=== PATIENT | female | born 1970 | race Caucasian/White ===

== ENCOUNTER 2016-06-09 10:23 | Emergency (ER) | payer BC ==
[2016-06-09 10:39] VITALS: BP 114/74
--- NOTE | 2016-06-09 10:56 | UC ---
Respiratory Complaint HPI - HPI Summary HPI Summary: dry cough for a week. STarted with fever, body aches, headache, ST. Now just a dry cough but also having pain in back. "Feels like pressure, like a tight heavy weight on back." Hurts to touch muscles on back, hurts to cough, hurts to take deep breath, hurts to lie flat. She is worried about pneumonia and wants a CXR to rule it out. Not worse with exertion. No sinus drainage. - History of Current Complaint Chief Complaint: UCRespiratory Stated Complaint: BACK AND CHEST TIGHTNESS Time Seen by Provider: 06/09/16 10:38 Hx Obtained From: Patient Onset/Duration: Gradual Onset Timing: Constant Severity Initially: Mild Severity Currently: Moderate Character: Cough: Nonproductive Aggravating Factors: Exertion, Recumbent Position Alleviating Factors: Nothing Associated Signs And Symptoms: Positive: Dyspnea, Fever - first few days only, Chills, Pleuritic Chest Pain, URI. Negative: Wheezing, Hemoptysis, Dizziness, Edema, Nasal Congestion, Hoarseness, Sinus Discomfort - Risk Factors Pulmonary Embolism Risk Factors: Negative Cardiac Risk Factors: Negative Pseudomonas Risk Factors: Negative Tuberculosis Risk Factors: Negative - Allergies/Home Medications Allergies/Adverse Reactions: Allergies Allergy/AdvReac Type Severity Reaction Status Date / Time Tetanus Toxoid Allergy Severe Anaphylatic Verified 06/09/16 10:34 Shock Sulfa Drugs Allergy Hives Verified 06/09/16 10:34 Home Medications: Home Medications Levothyroxine TAB* [Synthroid TAB*] 112 mcg PO 0800 06/09/16 [History Confirmed 06/09/16] buPROPion SR TAB* [Wellbutrin SR TAB*] 150 mg PO BID 06/09/16 [History Confirmed 06/09/16] PMH/Surg Hx/FS Hx/Imm Hx Endocrine History Of: Reports: Thyroid Disease - hypothyroid Denies: Diabetes Cardiovascular History Of: Reports: Cardiac Disorders - Pericardial effusion 2001 Denies: Hypertension, Congestive Heart Failure GI/ History Of: Denies: Renal Disease - Surgical History Surgical History: Yes Surgery Procedure, Year, and Place: tubal ligation 2003; uterine ablation 2013; - Family History Known Family History: Negative: Respiratory Disease - no FH asthma - Social History Occupation: Employed Full-time Lives: With Family Alcohol Use: Rare Substance Use Type: None Smoking Status (MU): Never Smoked Tobacco Review of Systems Constitutional: Fatigue Skin: Negative Eyes: Negative ENT: Negative Respiratory: Shortness Of Breath, Cough Cardiovascular: Negative Gastrointestinal: Negative Genitourinary: Negative Motor: Negative Neurovascular: Negative Musculoskeletal: Myalgia - upper back Neurological: Negative Psychological: Negative All Other Systems Reviewed And Are Negative: Yes Physical Exam Triage Information Reviewed: Yes Appearance: Well-Appearing, No Pain Distress, Well-Nourished Vital Signs: Initial Vital Signs Temp 98.9 F 06/09/16 10:30 Pulse 76 06/09/16 10:30 Resp 16 06/09/16 10:30 BP 114/74 06/09/16 10:30 Pulse Ox 99 06/09/16 10:30 Vital Signs Reviewed: Yes Eye Exam: Normal ENT Exam: Normal ENT: Positive: Hearing grossly normal, Pharynx normal, TMs normal. Negative: Tonsillar swelling, Tonsillar exudate, Trismus, Muffled/hoarse voice Respiratory Exam: Normal Respiratory: Positive: Lungs clear, Normal breath sounds, No respiratory distress, No accessory muscle use Cardiovascular Exam: Normal Cardiovascular: Positive: RRR Musculoskeletal Exam: Other - tenderness to palpation of muscles of upper back Neurological Exam: Normal Psychological Exam: Normal Skin Exam: Normal UC Diagnostic Evaluation - Laboratory O2 Sat by Pulse Oximetry: 99 Diagnostic Studies Comment: CXR neg Respiratory Course/Dx - Differential Dx/Diagnosis Differential Diagnosis/HQI/PQRI: Bronchitis, Lower Resp Infection Provider Diagnoses: URI Discharge - Discharge Plan Condition: Stable Disposition: HOME Prescriptions: Albuterol HFA INHALER* [Ventolin HFA Inhaler*] 1 - 2 puff INH Q4H PRN #1 mdi PRN Reason: cough, chest tightness Hydrocodone Polistirex-Chlorph [Tussionex Pennkinetic Ext 10-8 mg/5Ml] 1 teasp PO BID PRN #60 ml MDD 10ml PRN Reason: Cough Patient Education Materials: Upper Respiratory Infection (ED) Forms: *Work Release Referrals: Roberto Castro MD [Primary Care Provider] -
--- NOTE | 2016-06-09 11:18 | RAD ---
INDICATION: Cough, heavy feeling. COMPARISON: There are no prior studies available for comparison. TECHNIQUE: Dual-energy PA and lateral views of the chest were obtained. FINDINGS: The heart is within normal limits in size. Mediastinal and hilar contours appear within normal limits. The lungs are clear. No pleural effusion is present. IMPRESSION: NO EVIDENCE FOR ACTIVE CARDIOPULMONARY DISEASE.
== END 2016-06-09 11:35 | disposition home or self-care (01) ==
LOC: UCCORT 10:23
DX: J06.9 Acute upper respiratory infection, unspecified (principal); E03.9 Hypothyroidism, unspecified; Z88.7 Allergy status to serum and vaccine; Z88.2 Allergy status to sulfonamides
CPT/HCPCS: 71020; 99212; G0463

== ENCOUNTER 2016-07-29 08:25 | Emergency (ER) | payer BC ==
[2016-07-29 08:48] VITALS: BP 101/65
--- NOTE | 2016-07-29 10:32 | RAD ---
Indication: Right-sided reveals and cough. 2 views of the chest including dual energy PA views demonstrates no mediastinal shift. Heart is of normal size and configuration. Lung elias demonstrate no pleural fluid, bony or pneumothorax. When compared to previous exam of July 09, 2016 no significant change is noted. IMPRESSION: No active cardiopulmonary disease is noted.
--- NOTE | 2016-07-29 11:04 | UC ---
Throat Pain/Nasal Nacho HPI - HPI Summary HPI Summary: 45 yo female with cough x a week now with sever sore throat has had pneumonia and bronchits since May no f/c no n/v/d no CP or SOB no myalgias - History of Current Complaint Chief Complaint: UCRespiratory Stated Complaint: UPPER RESPIRATORY Time Seen by Provider: 07/29/16 09:29 Onset/Duration: Gradual Onset, Lasting Days Severity: Moderate Pain Intensity: 4 Pain Scale Used: 0-10 Numeric Cough: Nonproductive - Epiglottits Risk Factors Epiglottis Risk Factors: Negative - Allergies/Home Medications Allergies/Adverse Reactions: Allergies Allergy/AdvReac Type Severity Reaction Status Date / Time Tetanus Toxoid Allergy Severe Anaphylatic Verified 07/29/16 08:40 Shock Sulfa Drugs Allergy Hives Verified 07/29/16 08:40 PMH/Surg Hx/FS Hx/Imm Hx Previously Healthy: Yes Endocrine History Of: Reports: Thyroid Disease - hypothyroid Denies: Diabetes Cardiovascular History Of: Reports: Cardiac Disorders - Pericardial effusion 2001 Denies: Hypertension, Congestive Heart Failure Respiratory History Of: Reports: Bronchitis, Pneumonia GI/ History Of: Denies: Renal Disease - Surgical History Surgical History: Yes Surgery Procedure, Year, and Place: tubal ligation 2003; uterine ablation 2013; - Family History Known Family History: Negative: Respiratory Disease - no FH asthma - Social History Alcohol Use: Occasionally Substance Use Type: None Smoking Status (MU): Former Smoker When Did the Patient Quit Smoking/Using Tobacco: 1 1/2 years ago - Immunization History Most Recent Influenza Vaccination: 2015 Review of Systems Constitutional: Fatigue Skin: Negative Eyes: Negative ENT: Sore Throat Respiratory: Cough Cardiovascular: Negative Gastrointestinal: Negative Genitourinary: Negative Motor: Negative Neurovascular: Negative Musculoskeletal: Negative Neurological: Negative Psychological: Negative All Other Systems Reviewed And Are Negative: Yes Physical Exam Triage Information Reviewed: Yes Appearance: Well-Appearing, No Pain Distress, Well-Nourished Vital Signs: Initial Vital Signs Temp 98.4 F 07/29/16 08:42 Pulse 74 07/29/16 08:42 Resp 16 07/29/16 08:42 BP 101/65 07/29/16 08:42 Pulse Ox 99 07/29/16 08:42 Vital Signs Reviewed: Yes Eyes: Positive: Conjunctiva Clear ENT: Positive: Hearing grossly normal, Pharyngeal erythema, TMs normal, Tonsillar swelling. Negative: Nasal congestion, Nasal drainage, Tonsillar exudate, Trismus, Muffled/hoarse voice, Other: - no sinus tenderness Dental: Negative: Gross Decay/Caries @, Dental Fracture @, Abscess @ Neck: Positive: Supple, Nontender, Enlarged Nodes @ - ant cervical Respiratory: Positive: No respiratory distress, No accessory muscle use, Crackles - right UL. Negative: Rhonchi, Stridor, Wheezing Cardiovascular: Positive: RRR, No Murmur Musculoskeletal: Positive: ROM Intact, No Edema Neurological: Positive: Alert Psychological: Positive: Normal Response To Family Skin Exam: Normal Throat Pain/Nasal Course/Dx - Differential Dx/Diagnosis Provider Diagnoses: Pharyngitis. acute bronchitis Discharge - Discharge Plan Condition: Stable Disposition: HOME Prescriptions: Amoxicillin (*) [Amoxicillin 875 MG (*)] 875 mg PO BID #20 tab Prednisone 60 mg PO DAILY #9 tab Patient Education Materials: Pharyngitis (ED), Acute Bronchitis (ED) Forms: *Work Release Referrals: Roberto Castro MD [Primary Care Provider] - 1 Week Additional Instructions: recheck for new or worsening symptoms
== END 2016-07-29 11:07 | disposition home or self-care (01) ==
LOC: UCCORT 08:25
DX: J20.9 Acute bronchitis, unspecified (principal); J02.9 Acute pharyngitis, unspecified; Z88.2 Allergy status to sulfonamides; Z88.8 Allergy status to other drugs, medicaments and biological substances; Z87.891 Personal history of nicotine dependence
CPT/HCPCS: 71020; 87651; 99212; G0463

== ENCOUNTER 2017-12-20 07:58 | Observation (INO) | payer BC ==
[~2017-12-20 07:58] MED LIST: Buffered Lidocaine 0.9% SYRIN* 5 ML/SYR SYRINGE INTRADERM ONE; Sodium Citrate/Citric Acid* 15 ML UDC PO ONE
[2017-12-20] MEDS ORDERED: ceFAZolin 2 GM PREMIX (*) 2 GM/50 ML BAG IVPB ONE (08:11)
[2017-12-20] MEDS ORDERED: Sodium Citrate/Citric Acid* 15 ML UDC ONE (08:11)
[2017-12-20] MEDS ORDERED: Thrombin 5,000 UNITS* 1 APPLIC KIT - topical use - TOPICAL ONE (10:26)
[2017-12-20] MEDS ORDERED: Lidocain 1% EPI 1:100,000 * 30 ML MDV ONE (10:26)
[2017-12-20] MEDS ORDERED: Bacitracin IV* 50,000 UNITS INJ ONE (10:26)
[2017-12-20] MEDS ORDERED: Propofol* 10 MG/ML 20 ML BTL IV PUSH ONE ×2 (10:29→13:06)
[2017-12-20] MEDS ORDERED: Midazolam* 1 MG/ML 2 ML VIAL (2 MG) ONE (10:29)
[2017-12-20] MEDS ORDERED: fentaNYL* 50 MCG/ML 2 ML VIAL (100 MCG VIAL) ONE ×3 (10:29→13:47)
[2017-12-20] MEDS ORDERED: Lidocaine 2% PF * 5 ML VIAL ONE (10:30)
[2017-12-20] MEDS ORDERED: Rocuronium* 10 MG/ML VIAL ONE (10:46)
[2017-12-20] MEDS ORDERED: Ketorolac INJ* 30 MG/ML 1 ML VIAL IV PRN (12:06)
[2017-12-20] MEDS ORDERED: Naloxone* 0.4 MG/ML 1 ML VIAL IV PRN (12:06)
[2017-12-20] MEDS ORDERED: DiMENhydriNATE IV* 50 MG/ML VIAL IV PUSH PRN (12:06)
[2017-12-20] MEDS ORDERED: Neostigmine Methylsulfate* 1 MG/ML 10 ML VIAL (1 mg/ml) ONE (12:21)
[2017-12-20] MEDS ORDERED: Glycopyrrolate IV* 0.2 MG/ML 1 ML VIAL ONE (12:21)
[2017-12-20] MEDS ORDERED: Acetaminophen TAB* 325 MG PO PRN (12:56)
[2017-12-20] MEDS ORDERED: Magnesium Hydroxide LIQ* 30 ML UDC PO PRN (12:56)
[2017-12-20] MEDS: fentaNYL* 50 MCG/ML 2 ML VIAL (100 MCG VIAL) IV PRN ×4 (13:30→14:14)
[2017-12-20] MEDS ORDERED: HYDROcodone/ACETAMIN 5-325 MG* 1 TAB ONE (14:07)
[2017-12-20] MEDS ORDERED: Ketorolac INJ* 30 MG/ML 1 ML VIAL ONE (14:07)
[2017-12-20] MEDS: HYDROcodone/ACETAMIN 5-325 MG* 1 TAB PO PRN ×2 (14:08→18:11)
--- NOTE | 2017-12-20 16:41 | RAD ---
INDICATION: Intraoperative lateral lumbar radiograph TECHNIQUE: A single crosstable lateral view was acquired intraoperatively. FINDINGS: At the L5/S1 level there are retractors overlying the posterior soft tissues of the back with a surgical instrument pointing at the L5/S1 intervertebral disc space. IMPRESSION: Crosstable lateral lumbar radiograph as described above.
[2017-12-20] MEDS ORDERED: Mouth Piece, Nicotine* 1 EACH CARTRIDGE INH ONE (18:19)
[2017-12-20] MEDS ORDERED: Nicotine Inhaler* 10 MG AMP INH PRN (18:19)
[2017-12-20] MEDS ORDERED: ALPRAZolam TAB* 0.5 MG PO SCH (21:00)
[2017-12-20] MEDS ORDERED: Citalopram TAB* 40 MG PO SCH (21:00)
[2017-12-21] MEDS: HYDROcodone/ACETAMIN 5-325 MG* 1 TAB PO PRN ×2 (02:16→07:36)
[2017-12-21] MEDS ORDERED: Levothyroxine TAB* 112 MCG TAB PO SCH (06:00)
[2017-12-21 07:56] VITALS: BP 99/50
--- NOTE | 2017-12-21 07:56 | PN ---
Progress Note - Progress Note Date of Service: 12/21/17 SOAP: Subjective: [S/p lumbar discectomy L5-S1 right complicated by CSF leak, POD #1. Preop RLE symptoms improved. Able to ambulate up to bathroom. Pain well controlled with PO meds. Eating, drinking and voiding without difficulty.] Objective: [ Vital Signs: Temp Pulse Resp BP Pulse Ox 98.5 F 69 16 94/55 93 12/21/17 03:29 12/21/17 03:29 12/21/17 07:36 12/21/17 03:29 12/21/17 03:29 General: Alert, laying comfortably in bed. NAD. Neuro: Motor and sensory normal. Incision: Intact with amado. Dressing in place, no swelling. ] Assessment: [Satisfactory post-op.] Plan: [1. Discharge home today. 2. Discharge instructions discussed.]
--- NOTE | 2017-12-28 18:09 | OP ---
DATE OF OPERATION: 12/20/17 - ROOM #339 DATE OF : 66 SURGEON: Fidel Das MD SCREEDMAN/LABORER: PARAMJIT Cruz ANESTHESIA: General. PRE-OP DIAGNOSIS: Herniated nucleus pulposus, L5-S1 on the right. POST-OP DIAGNOSIS: Herniated nucleus pulposus, L5-S1 on the right. OPERATIVE PROCEDURE: Lumbar diskectomy, L5-S1 on the right with microdissection. DESCRIPTION OF PROCEDURE: After satisfactory general anesthesia was obtained, the patient was placed on the operating table in the prone position with the chest supported on the Marin frame and the back slightly flexed. The lumbar region was clipped, prepped and draped in a sterile manner for lumbar laminectomy and skin incision outlined from L5 to the sacrum. This incision was infiltrated with 1% Xylocaine with epinephrine after which it was turned down sharply to the level of the lumbar fascia. The fascia was divided along the spinous processes of L5 and the sacrum and the paraspinal musculature was stripped away from these posterior elements using the periosteal elevator and monopolar cautery. The L5-S1 interspace was identified by palpating the sacrum and moving up to the first movable interspace. A partial hemilaminectomy was then carried out by removing the inferior aspect of the L5 lamina and medial aspect of the facet complex with combination of the Midax Garry drill and Kerrison rongeurs. This was carried superiorly until attachment of ligamentum flavum was taken down. In removing the bone, a dural opening was made with CSF leakage being controlled with temporary Gelfoam. The patient's preoperative studies had shown a far lateral disk herniation at L5-S1 on the right side. The dural opening was superior and medial to the area of primary operative concern. Additional lateral exposure was obtained until the medial facet was removed at this level. A portion of the lateral facet was also decompressed. Utilized microdissection, epidural venous structures were coagulated and divided. Projecting far laterally was a disk herniation that was causing compression of the L5 nerve root. Multiple fragments of disk were removed from this region. A portion of this process appeared somewhat chronic and required debridement with angle and straight curettes. At the conclusion of the decompression, the L5 nerve root was noted to be free in its course. During the course of the far lateral dissection, there was no leakage of cerebrospinal fluid noted. It was felt that the Gelfoam covering the dural opening had formed a good seal and decision was made to not further explore this region. The piece of Gelfoam was left intact and was supplemented with DuraSeal tissue adhesive. The fascia was then tightly reapproximated with 0 Vicryl suture. The subcutaneous tissues were closed with 3-0 Vicryl suture and the skin closed with skin clips. The estimated blood loss was less than 50 cc and the final sponge, padding, and needle counts were correct. The patient was taken to the recovery room, extubated, and in stable condition. [id number]/[facility] #: [id number] [facility]
--- NOTE | 2018-01-05 21:24 | DS ---
DISCHARGE SUMMARY: DATE OF ADMISSION: 12/20/17. DATE OF DISCHARGE: 12/21/17. ATTENDING PHYSICIAN: Dr. Das. DISCHARGE DIAGNOSES: 1. Herniated nucleus pulposus, L5-S1 on the right. 2. Hypothyroidism. SPECIAL PROCEDURES: Lumbar diskectomy, L5-S1 on the right. HOSPITAL COURSE: This patient was seen in the office with a right-sided lumbar radiculopathy consist ent with MRI findings of a herniated disk at L5-S1 on the right. She failed to improve with conserva tive treatments and symptoms had worsened in previous couple of weeks. She therefore elected for jayne gical intervention. On day of admission, she was taken to the surgery where under general anesthesia , a lumbar diskectomy at L5-S1 on the right, operation was carried out. Surgery was complicated by a CSF leak, which was repaired and sealed intraoperatively. Postoperatively, she was required to wally in flat for several hours. On the first postoperative day, she was able to get up and ambulate indep endently. She was eating, drinking and voiding without difficulty. She denied headache. Preoperati ve right lower extremity symptoms were improved. Pain was well controlled with oral pain medications on the first postoperative day. She was discharged to home to the care of her family. DISCHARGE INSTRUCTIONS: Including wound care and activity level were discussed with the patient and information was provided. She will be seen in office in approximately 10 days for a followup. She will continue all home medica tions. PARAMJIT VALDEZ [id number]/[facility] #: [id number]
== END 2017-12-21 10:25 | disposition home or self-care (01) ==
LOC: OR 07:58 → SSU 15:02
PROVIDERS: ADMIT Neurological Surgery; ATTEND Neurological Surgery
DX: M51.26 Other intervertebral disc displacement, lumbar region (principal); M54.5 Low back pain; F17.210 Nicotine dependence, cigarettes, uncomplicated
CPT/HCPCS: 72100; 96374; A9270-GY; G0378; J0690; J1885; J2250; J2704; J2710; J3010

== ENCOUNTER 2019-02-05 10:41 | Emergency (ER) | payer BC, OTHER ==
[2019-02-05 10:47] VITALS: BP 127/82
== END 2019-02-05 12:25 | disposition left against medical advice (07) ==
LOC: ED 10:41
DX: Z53.21 Procedure and treatment not carried out due to patient leaving prior to being seen by health care provider (principal); F19.939 Other psychoactive substance use, unspecified with withdrawal, unspecified